=== PATIENT | male | born 1940 | race Caucasian/White ===

== ENCOUNTER → 2017-04-08 | Outpatient (CLI) | payer MEDICARE, OTHER ==
[~2017-04-08] MED LIST: ALLO100T51 PO; ATOR10TA64 PO; CALC667C7 PO; CHOL100018 PO; CLOP75TA33 PO; CYAN250T PO; HYDR-4074 PO; IOHEXOL 180 MG/ML 20ml INJECTION ONE; LIDOCAINE 1% (10mg/ml) 5ml VIAL ONE; LORA1TAB3 PO; MethylPREDNISolone ACETATE 40mg/1ml ONE; NORT10CA2 PO; NORT25CA79 PO; ROPI1TAB12 PO; SERT-88 PO; VITA1TAB15 PO; [UNRECOGNIZED DRUG - CODE] PO
--- NOTE | 2017-04-08 14:10 | DI ---
Indication:ITS.REASON: M48.06 SPINAL STENOSIS, LUMBAR REGION; M54.16 RADICULOPATHY, LUMB Procedure:EPIDURAL INJ.SPINE W FLUO CATH LUMBAR EPIDURAL INJECTION: The patient has low back and radicular pain. The patient has had a previous epidural that provided excellent relief. The details of the procedure, including the benefits, risks, and alternatives were explained to the patient. All of their questions were answered. They stated that they understood and wished to proceed. Informed consent was then obtained. A pre-procedural timeout was performed to confirm the correct patient and procedure. Utilizing aseptic technique, local lidocaine anesthetic, and fluoroscopic guidance throughout, a 22-gauge spinal needle was directed into the lumbar epidural space via an interlaminar approach at the L4-5 level. Contrast was injected to assure proper positioning of the needle tip. A fluoroscopic image was then taken and archived. Subsequently, 120 mg Depo-Medrol was injected into the epidural space. The patient tolerated the procedure well. IMPRESSION: Successful lumbar epidural steroid injection. Fluoroscopy dose: 31.92 mGy (Cumulative air kerma) Terry Zabala RPA/ANTHONY performed this under my personal supervision. .
== END ==
LOC: IMA 12:34
PROVIDERS: ATTEND Family Medicine Sports Medicine
DX: M48.06 Spinal stenosis, lumbar region (principal); M54.16 Radiculopathy, lumbar region
CPT/HCPCS: 62323; J1030; Q9965